=== PATIENT | female | born 1950 | race Hispanic/Latino ===

== ENCOUNTER 2017-01-11 07:20 | Day surgery (SDC) | payer BC, MEDICARE ==
[2017-01-11] MEDS ORDERED: Sodium Chloride 0.9% 1,000 ML IV SCH (08:15)
[2017-01-11] MEDS ORDERED: Lidocaine 2% Inj (20ml) ONE (08:57)
[2017-01-11] MEDS ORDERED: Propofol 10 mg/ml Inj (20 ML) ONE (08:57)
[2017-01-11] MEDS ORDERED: Etomidate 20 mg/10ml Inj IV ONE (08:58)
[2017-01-11 10:22] VITALS: BP 126/74; PULSE 81; RESP 19; TEMP 97.7; O2SAT 95
== END 2017-01-11 11:19 | disposition home or self-care (01) ==
LOC: ENDO 07:20
PROVIDERS: ATTEND Specialist
DX: Z12.11 Encounter for screening for malignant neoplasm of colon (principal); K64.8 Other hemorrhoids; E06.3 Autoimmune thyroiditis; J44.9 Chronic obstructive pulmonary disease, unspecified; I27.20 Pulmonary hypertension, unspecified
CPT/HCPCS: 45378; J2704; J7040